=== PATIENT | female | born 1990 | race Caucasian/White ===

== ENCOUNTER 2019-10-10 05:15 | Inpatient (IN) | payer BC ==
[2019-10-10] MEDS ORDERED: Sodium Chloride 0.9% 2.5 ML Syringe FLUSH PRN (05:44)
[2019-10-10] MEDS ORDERED: Sodium Chloride 0.9% 10 ML Syringe FLUSH PRN (05:44)
[2019-10-10] MEDS ORDERED: Sodium Chloride 0.9% 10 ML SDV IV PRN (05:44)
[2019-10-10] MEDS: Lactated Ringers 1,000 ML IV SCH ×3 (05:58→11:33)
--- NOTE | 2019-10-10 07:03 | PCM.PREANE ---
Preanesthetic Assessment - Anesthesia/Transfusion/Family Hx Anesthesia History: Prior Anesthesia Without Reaction Family History of Anesthesia Reaction: No Transfusion History: No Prior Transfusion(s) Intubation History: Unknown - Review of Systems General: No Symptoms Pulmonary: No Symptoms Cardiovascular: No Symptoms Gastrointestinal: No Symptoms Neurological: No Symptoms Other: Reports: None - Physical Assessment Height: 4 ft 11.5 in Weight: 76.204 kg ASA Class: 2 Mental Status: Alert & Oriented x3 Airway Class: Mallampati = 1 Dentition: Reports: Normal Dentition Thyro-Mental Finger Breadths: 3 Mouth Opening Finger Breadths: 3 ROM/Head Extension: Full Lungs: Clear to Auscultation, Normal Respiratory Effort Cardiovascular: Regular Rate, Regular Rhythm - Lab Values: Laboratory Last Values WBC 14.62 K/uL (4.0-11.0) H 10/10/19 05:56 RBC 4.02 M/uL (4.30-5.90) L 10/10/19 05:56 Hgb 12.1 g/dL (12.0-16.0) 10/10/19 05:56 Hct 37.7 % (36.0-46.0) 10/10/19 05:56 MCV 93.8 fL (80.0-98.0) 10/10/19 05:56 MCH 30.1 pg (27.0-32.0) 10/10/19 05:56 MCHC 32.1 g/dL (31.0-37.0) 10/10/19 05:56 RDW Std Deviation 48.8 fl (28.0-62.0) 10/10/19 05:56 RDW Coeff of Delilah 14 % (11.0-15.0) 10/10/19 05:56 Plt Count 293 K/uL (150-400) 10/10/19 05:56 MPV 10.20 fL (7.40-12.00) 10/10/19 05:56 Nucleated RBC % 0.0 /100WBC 10/10/19 05:56 Nucleated RBCs # 0 K/uL 10/10/19 05:56 - Allergies Allergies/Adverse Reactions: Allergies Allergy/AdvReac Type Severity Reaction Status Date / Time azithromycin Allergy Hives Verified 10/06/19 08:07 - Blood Blood Available: No - Anesthesia Plan Pre-Op Medication Ordered: None - Acknowledgements Anesthesia Type Planned: Spinal (general anesthesia back-up plan) Pt an Appropriate Candidate for the Planned Anesthesia: Yes Alternatives and Risks of Anesthesia Discussed w Pt/Guardian: Yes Pt/Guardian Understands and Agrees with Anesthesia Plan: Yes PreAnesthesia Questionnaire HEENT History: Reports: Other (See Below) Other HEENT History: wears glasses/contacts Cardiovascular History: Reports: None Respiratory History: Reports: None Gastrointestinal History: Reports: Other (See Below) Other Gastrointestinal History: occasional heartburn during Genitourinary History: Reports: None INDIRECT SALES EXEC History: Reports: (breech presentation, first C/S), Spontaneous Musculoskeletal History: Reports: None Neurological History: Reports: Other (See Below) Other Neuro History: hx of motion sickness, Psychiatric History: Reports: None Endocrine/Metabolic History: Reports: None Hematologic History: Reports: None Immunologic History: Reports: None Oncologic (Cancer) History: Reports: None Dermatologic History: Reports: None - Infectious Disease History Infectious Disease History: Reports: Chicken Pox - Past Surgical History Head Surgeries/Procedures: Reports: None HEENT Surgical History: Reports: None Cardiovascular Surgical History: Reports: None Respiratory Surgical History: Reports: None GI Surgical History: Reports: Appendectomy, Cholecystectomy Female Surgical History: Reports: None Endocrine Surgical History: Reports: None Neurological Surgical History: Reports: None Musculoskeletal Surgical History: Reports: None Oncologic Surgical History: Reports: None Dermatological Surgical History: Reports: None - SUBSTANCE USE Smoking Status *Q: Current Every Day Smoker Tobacco Use Within Last Twelve Months: Cigarettes Second Hand Smoke Exposure: Yes Recreational Drug Use History: No - HOME MEDS Home Medications: Home Meds Pnv No.95/Ferrous Fum/Folic AC [ Vitamin Tablet] 1 tab PO DAILY [History] valACYclovir HCl [Valtrex] 500 mg PO BID 10/06/19 [History] - CURRENT (IN HOUSE) MEDS Current Meds: Current Medications Citric Acid/Sodium Citrate (Bicitra Solution) 30 ml PO ONETIME ONE Stop: 10/10/19 07:31 Cefazolin Sodium/Dextrose 1 gm (/ Premix) 50 mls @ 100 mls/hr IV ONETIME ONE Stop: 10/10/19 07:59 Lactated Ringer's (Ringers, Lactated) 1,000 mls @ 500 mls/hr IV BOLUS [facility] Last Admin: 10/10/19 05:58 Dose: 500 mls/hr Oxytocin/Sodium Chloride (Oxytocin 30 Unit/500 Ml-Ns) 30 unit in 500 mls @ 250 mls/hr IV TITRATE [facility] Sodium Chloride (Saline Flush) 10 ml FLUSH ASDIRECTED PRN PRN Reason: Keep Vein Open Sodium Chloride (Saline Flush) 2.5 ml FLUSH ASDIRECTED PRN PRN Reason: Keep Vein Open Sodium Chloride (Normal Saline) 10 ml IV ASDIRECTED PRN PRN Reason: IV Use
[2019-10-10] MEDS ORDERED: Morphine PF 10 MG/10 ML SDV ONE (07:19)
[2019-10-10] MEDS ORDERED: Ondansetron 4 MG/2 ML SDV ONE (07:19)
[2019-10-10] MEDS ORDERED: Phenylephrine 1% 10 MG/ML SDV ONE (07:19)
[2019-10-10] MEDS ORDERED: Dexamethasone 4 MG/ML 5 ML MDV ONE (07:20)
[2019-10-10] MEDS ORDERED: Oxytocin/0.9 % Sodium Chloride 30 UNIT/500 ML BAG IV SCH (07:30)
[2019-10-10] MEDS ORDERED: ceFAZolin 1 GM in Premix Bag 1 BAG IV ONE (07:30)
[2019-10-10] MEDS ORDERED: Citric Acid/Sodium Citrate Solution 30 ML Cup PO ONE (07:30)
[2019-10-10] MEDS ORDERED: ceFAZolin 1 GM Vial ONE (07:42)
[2019-10-10] MEDS ORDERED: Sodium Chloride 0.9% 20 ML ONE (07:42)
[2019-10-10] MEDS ORDERED: Naloxone 0.4 MG/ML Syringe IVPUSH PRN (08:29)
[2019-10-10] MEDS ORDERED: diphenhydrAMINE 50 MG/ML SDV IVPUSH PRN ×2 (08:29→09:54)
[2019-10-10] MEDS ORDERED: fentaNYL 100 MCG/2 ML SDV IVPUSH PRN (08:33)
[2019-10-10] MEDS ORDERED: Acetaminophen/oxyCODONE 325-5 MG Tab PO PRN ×2 (08:33→09:54)
[2019-10-10] MEDS ORDERED: Bisacodyl 10 MG Supp RECTAL PRN ×2 (08:50→09:54)
[2019-10-10] MEDS ORDERED: Docusate Sodium 100 MG Cap PO PRN (08:50)
[2019-10-10] MEDS ORDERED: Lanolin 100% Cream 7 GM Tube TOP PRN ×2 (08:50→09:54)
[2019-10-10] MEDS ORDERED: Ibuprofen 800 MG Tab PO PRN (08:50)
[2019-10-10] MEDS ORDERED: Benzocaine/Menthol 20%-0.5% Spray 78 GM Cannister TOP PRN (08:50)
[2019-10-10] MEDS ORDERED: Aluminum Hydroxide/Magnesium Hydroxide/Simethicone Susp 30 ML Cup PO PRN (08:50)
[2019-10-10] MEDS ORDERED: Witch Hazel Medicated Pads 40/Jar TOP PRN (08:50)
[2019-10-10] MEDS ORDERED: oxyCODONE 5 MG Tab PO PRN (08:50)
[2019-10-10] MEDS ORDERED: Ibuprofen 400 MG Tab PO PRN (08:50)
[2019-10-10] MEDS ORDERED: Acetaminophen 500 MG Tab PO PRN ×2 (08:50)
--- NOTE | 2019-10-10 08:59 | PCM.OPNOTE ---
- General Post-Op/Procedure Note Date of Surgery/Procedure: 10/10/19 Operative Procedure(s): Primary LTCS Findings: Viable male APGARs 8, 9 weight 2940 gm. Intact placenta with 3 V cord. Normal appearing pelvis Pre Op Diagnosis: 39 week IUP. Breech presentation Post-Op Diagnosis: Same Anesthesia Technique: Spinal Primary Surgeon: Emilee Coats Fluid Replacement, Intraop: 700 (in OR) EBL in mLs: 500 Complications: none known Condition: Stable Free Text/Narrative:: Dictation [id number]
[2019-10-10] MEDS ORDERED: Misoprostol 200 MCG Tab RECTAL PRN (09:54)
[2019-10-10] MEDS ORDERED: Tranexamic Acid 1,000 MG in Sodium Chloride 0.9% 100 ML IV PRN (09:54)
[2019-10-10] MEDS ORDERED: Ondansetron 4 MG/2 ML SDV IVPUSH PRN (09:54)
[2019-10-10] MEDS ORDERED: Oxytocin 10 Units/1 ML SDV IM PRN (09:54)
[2019-10-10] MEDS ORDERED: Methylergonovine 0.2 MG/1 ML Amp IM PRN (09:54)
--- NOTE | 2019-10-10 10:06 | PCM.POSTAN ---
POST ANESTHESIA ASSESSMENT - MENTAL STATUS Mental Status: Alert, Oriented - RESPIRATORY Respiratory Status: Respiratory Rate WNL, Airway Patent, O2 Saturation Stable - CARDIOVASCULAR CV Status: Pulse Rate WNL, Blood Pressure Stable - GASTROINTESTINAL GI Status: No Symptoms - POST OP HYDRATION Hydration Status: Adequate & Stable
[2019-10-10] MEDS: Ketorolac 30 MG/ML SDV IVPUSH SCH ×3 (10:25→22:15)
[2019-10-10] MEDS: Nalbuphine 10 MG/1 ML Vial IVPUSH PRN ×2 (11:46→17:20)
--- NOTE | 2019-10-10 14:49 | OR ---
SURGEON: Emilee Coats M.D. DATE OF PROCEDURE: 10/10/2019 PREOPERATIVE DIAGNOSES: 1. A 39-week intrauterine . 2. Breech presentation. POSTOPERATIVE DIAGNOSES: 1. A 39-week intrauterine . 2. Breech presentation. PROCEDURE: Primary low transverse section. PRIMARY SURGEON: Emilee Coats MD ANESTHESIA: Spinal. ESTIMATED BLOOD LOSS: 500 mL. FLUIDS: 700 mL of crystalloid in the OR. COMPLICATIONS: None known. FINDINGS: Viable male. scores 8 at one minute and 9 at five minutes. Weight 2940 g. Spontaneous delivery, intact placenta, 3-vessel cord. DISPOSITION: to nursery, mom in PACU, stable. PROCEDURE DETAILS: Lady is a 29-year-old G4, P 0-0-3-0, at 39 weeks' gestational age who presents today for scheduled primary delivery due to persistent breech presentation. Ultrasound does confirm breech presentation. Discussed options for delivery. She is opting for the . Risks of procedure discussed. Proper consent obtained. The patient went to the OR where she underwent spinal anesthetic and was placed in dorsal supine position in leftward tilt. SCDs to lower extremities. Gutierrez to gravity. Was prepped and draped in usual sterile fashion. Anesthesia was tested and was found to be adequate. Pfannenstiel incision was now created, carried down the subcutaneous tissue to the level of the rectus fascia which was incised in the midline, lateralized on either side sharply and bluntly. Superior aspect of fascia was tented upward, dissected sharply and bluntly away from underlying muscles. In a similar aspect, this was performed with the inferior aspect of the fascia. Rectus muscles were in midline. Peritoneum was entered. Rectus muscles and peritoneum were now lateralized bluntly. Uterine position and position palpated. Self-retaining retractor was gently placed. Uterovesical reflection was visualized. Bladder flap was created sharply and bluntly. Bladder blade was placed in the lower uterine segment. Low transverse hysterotomy was now performed. Uterine cavity was entered with blunt-ended scalpel, lateralized bluntly. Amniotomy was performed, clear fluid was returned. Infant's buttocks were visualized, were delivered to the midline and delivered followed by lower extremities, trunk, right upper extremity, left upper extremity. The head was flexed and delivered. Infant was vigorous and crying. Oropharynx and nares were bulb suctioned. After a delay, cord was clamped x2 and cut. was handed off to attending nursing staff. Cord arterial, cord venous, cord blood sampling was obtained. The placenta was now delivered. Uterine cavity was cleared of all clot and debris. I did not palpate any uterine defects or malformations. Hysterotomy was repaired using 0 Vicryl in continuous running locked fashion followed by re-imbricating layer. Area of oozing along the left and right lateral side was replicated with [id number] suture. Hemostasis evident. Posterior aspect of the uterus inspected. No defects or hematomas were found be forming. The uterus returned to the abdominal cavity. Colonic gutters were cleared of all clot and debris, well irrigated, suction dried. Hysterotomy once again inspected, found to be hemostatic. Self-retaining retractor was now removed. Bladder blade was placed. Hysterotomy once again inspected, found to be hemostatic. Rectus muscle and peritoneum were now reapproximated using 0 Vicryl in the inverted mattress suture technique. Anterior aspect of the muscle and posterior aspect of the fascia were closely inspected. Any areas of oozing were cauterized. The rectus fascia was reapproximated using 0 Vicryl in continuous running fashion, beginning laterally on each side and meeting in the midline. Subcutaneous tissue was well irrigated, suction dried. Any areas of oozing were cauterized. Skin edges were reapproximated using 3-0 Vicryl on a Inderjit needle in subcuticular fashion followed by half-inch Steri-Strips and Mastisol. Uterus remained firm. Sponge, instrument, and needle count was correct x2. The patient tolerated the procedure well overall. She will go to PACU in stable condition, infant to nursery. KADY / EVER /[id number]
[2019-10-10] MEDS: Simethicone 80 MG Tab.Chew PO SCH ×2 (15:42→22:15)
--- NOTE | 2019-10-10 19:13 | PCM48HPAN ---
Post Anesthesia Note - EVALUATION WITHIN 48HRS OF ANESTHETIC Vital Signs in Normal Range: Yes Patient Participated in Evaluation: Yes Respiratory Function Stable: Yes Airway Patent: Yes Cardiovascular Function Stable: Yes Hydration Status Stable: Yes Pain Control Satisfactory: Yes Nausea and Vomiting Control Satisfactory: Yes Mental Status Recovered: Yes Vital Signs: Last Vital Signs Temp 36.4 C 10/10/19 13:00 Pulse 74 10/10/19 18:00 Resp 18 10/10/19 18:00 BP 94/50 L 10/10/19 16:00 Pulse Ox 96 10/10/19 18:00 - COMMENTS/OBSERVATIONS Free Text/Narrative:: No anesthesia problems
[2019-10-10] MEDS: Docusate Sodium 100 MG Cap PO SCH (22:15)
[2019-10-11] MEDS: Lactated Ringers 1,000 ML IV SCH (00:28)
[2019-10-11] MEDS: Ketorolac 30 MG/ML SDV IVPUSH SCH ×2 (04:12→10:26)
[2019-10-11] MEDS: Docusate Sodium 100 MG Cap PO SCH ×2 (10:21→20:58)
[2019-10-11] MEDS: Simethicone 80 MG Tab.Chew PO SCH ×2 (10:21→20:58)
--- NOTE | 2019-10-11 11:14 | PCM.PNPP ---
- General Info Date of Service: 10/11/19 Subjective Update: 29yo P1 s/p primary for Breech presentation Pain is well controlled , ambulating , tolerating regular diet , yet to void Functional Status: Reports: Pain Controlled, Tolerating Diet, Ambulating, Urinating - Review of Systems General: Reports: No Symptoms HEENT: Reports: No Symptoms Pulmonary: Reports: No Symptoms Cardiovascular: Reports: No Symptoms Gastrointestinal: Reports: No Symptoms Genitourinary: Reports: No Symptoms Musculoskeletal: Reports: No Symptoms Skin: Reports: No Symptoms Neurological: Reports: No Symptoms Psychiatric: Reports: No Symptoms - General Info Date of Service: 10/11/19 - Patient Data Vital Signs - Most Recent: Last Vital Signs Temp 36.6 C 10/11/19 08:00 Pulse 77 10/11/19 08:00 Resp 16 10/11/19 08:00 BP 100/50 L 10/11/19 08:00 Pulse Ox 99 10/11/19 08:00 Weight - Most Recent: 76.204 kg I&O - Last 24 Hours: Intake & Output 10/10/19 10/11/19 10/11/19 22:59 06:59 14:59 Output Total 1400 Balance -1400 Lab Results - Last 24 Hours: Laboratory Results - last 24 hr 10/11/19 Range/Units 05:55 Hgb 10.1 L (12.0-16.0) g/dL Hct 30.8 L (36.0-46.0) % Med Orders - Current: Current Medications Bisacodyl (Dulcolax) 10 mg RECTAL ONETIME PRN PRN Reason: Constipation Diphenhydramine HCl (Benadryl) 25 mg IVPUSH Q6H PRN PRN Reason: Itching or Nausea Docusate Sodium (Colace) 100 mg PO BID [facility] Last Admin: 10/11/19 10:21 Dose: 100 mg Emollient Ointment (Lansinoh Hpa) 0 gm TOP ASDIRECTED PRN PRN Reason: Sore Nipples Last Admin: 10/11/19 10:31 Dose: 1 tube Fentanyl (Sublimaze) 25 - 50 mcg IVPUSH Q30M PRN PRN Reason: Pain Lactated Ringer's (Ringers, Lactated) 1,000 mls @ 500 mls/hr IV BOLUS [facility] Last Admin: 10/10/19 07:15 Dose: 999 mls/hr Oxytocin/Sodium Chloride (Oxytocin 30 Unit/500 Ml-Ns) 30 unit in 500 mls @ 250 mls/hr IV TITRATE [facility] Lactated Ringer's (Ringers, Lactated) 1,000 mls @ 125 mls/hr IV ASDIRECTED [facility] Last Admin: 10/11/19 00:28 Dose: 125 mls/hr Tranexamic Acid 1,000 mg/ (Sodium Chloride) 110 mls @ 660 mls/hr IV ONETIME PRN PRN Reason: Bleeding Ibuprofen (Motrin) 800 mg PO Q8H PRN PRN Reason: mild pain or fever Methylergonovine Maleate (Methergine) 0.2 mg IM ONETIME PRN PRN Reason: Excessive Vaginal Bleeding Misoprostol (Cytotec) 1,000 mcg RECTAL ONETIME PRN PRN Reason: excessive bleeding Ondansetron HCl (Zofran) 4 mg IVPUSH Q4H PRN PRN Reason: Nausea/Vomiting Oxycodone/Acetaminophen (Percocet 325-5 Mg) 1 - 2 tab PO Q6H PRN PRN Reason: Pain Stop: 10/12/19 14:00 Oxycodone/Acetaminophen (Percocet 325-5 Mg) 1 tab PO Q4H PRN PRN Reason: Pain (moderate 4-6) Oxycodone/Acetaminophen (Percocet 325-5 Mg) 2 tab PO Q4H PRN PRN Reason: Pain (moderate 4-6) Oxytocin (Pitocin) 10 unit IM ASDIRECTED PRN PRN Reason: Excessive Vaginal Bleeding Simethicone (Simethicone) 80 mg PO BID [facility] Last Admin: 10/11/19 10:21 Dose: 80 mg Sodium Chloride (Saline Flush) 10 ml FLUSH ASDIRECTED PRN PRN Reason: Keep Vein Open Sodium Chloride (Saline Flush) 2.5 ml FLUSH ASDIRECTED PRN PRN Reason: Keep Vein Open Sodium Chloride (Normal Saline) 10 ml IV ASDIRECTED PRN PRN Reason: IV Use Discontinued Medications Cefazolin Sodium (Ancef) Confirm Administered Dose 1 gm .ROUTE .STK-MED ONE Stop: 10/10/19 07:43 Citric Acid/Sodium Citrate (Bicitra Solution) 30 ml PO ONETIME ONE Stop: 10/10/19 07:31 Dexamethasone (Dexamethasone) Confirm Administered Dose 20 mg .ROUTE .STK-MED ONE Stop: 10/10/19 07:21 Diphenhydramine HCl (Benadryl) 25 mg IVPUSH Q4H PRN PRN Reason: Itching Stop: 10/11/19 08:32 Cefazolin Sodium/Dextrose 1 gm (/ Premix) 50 mls @ 100 mls/hr IV ONETIME ONE Stop: 10/10/19 07:59 Sodium Chloride (Normal Saline) Confirm Administered Dose 20 mls @ as directed .ROUTE .STK-MED ONE Stop: 10/10/19 07:43 Ketorolac Tromethamine (Toradol) 30 mg IVPUSH Q6H [facility] Stop: 10/11/19 10:01 Last Admin: 10/11/19 10:26 Dose: 30 mg Morphine Sulfate (Duramorph Pf) Confirm Administered Dose 10 mg .ROUTE .STK-MED ONE Stop: 10/10/19 07:20 Nalbuphine HCl (Nubain) 5 mg IVPUSH Q3H PRN PRN Reason: Pruritis Stop: 10/11/19 08:32 Last Admin: 10/10/19 17:20 Dose: 5 mg Naloxone HCl (Narcan) 0.1 mg IVPUSH ONETIME PRN PRN Reason: Respiratory Depression Stop: 10/11/19 08:33 Ondansetron HCl (Zofran) Confirm Administered Dose 4 mg .ROUTE .STK-MED ONE Stop: 10/10/19 07:20 Phenylephrine HCl (Doug-Synephrine) Confirm Administered Dose 10 mg .ROUTE .STK- MED ONE Stop: 10/10/19 07:20 - Infant Interaction Support Person: Significant Other - Recovery Exam Fundal Tone: Firm Fundal Level: At Umbilicus Fundal Placement: Midline Lochia Amount: Small Lochia Color: Rubra/Red Perineum Description: Intact, Minimal Bruising/Swelling Bladder Status: Indwelling Catheter in Place - Exam General: Alert HEENT: Pupils Equal Neck: Supple Lungs: Clear to Auscultation Cardiovascular: Regular Rate, Regular Rhythm GI/Abdominal Exam: Normal Bowel Sounds Extremities: Normal Inspection Neurological: No New Focal Deficit Psy/Mental Status: Alert - Problem List & Annotations (1) delivery delivered SNOMED Code(s): 548770902 Code(s): O82 - ENCOUNTER FOR DELIVERY WITHOUT INDICATION Status: Acute Current Visit: Yes - Problem List Review Problem List Initiated/Reviewed/Updated: Yes - Assessment Assessment:: 29yo P1 s/p primary POD1 Normal lochia Gutierrez removed - yet to void - Plan Plan:: Ambulation Regular diet Pain control as needed Incentive spirometry Discharge home tomorrow
[2019-10-11] MEDS: Acetaminophen/oxyCODONE 325-5 MG Tab PO PRN ×3 (11:50→20:58)
[2019-10-11] MEDS: Ibuprofen 800 MG Tab PO PRN (17:12)
[2019-10-12] MEDS: Ibuprofen 800 MG Tab PO PRN ×2 (01:12→09:28)
[2019-10-12] MEDS: Acetaminophen/oxyCODONE 325-5 MG Tab PO PRN ×2 (06:28→10:56)
[2019-10-12] MEDS: Simethicone 80 MG Tab.Chew PO SCH (09:25)
[2019-10-12] MEDS: Docusate Sodium 100 MG Cap PO SCH (09:26)
--- NOTE | 2019-10-12 09:57 | PCM.PNPP ---
- General Info Date of Service: 10/12/19 Subjective Update: 29yo P1 s/p primary for Breech presentation Pain is well controlled , ambulating , tolerating regular diet , voiding Functional Status: Reports: Pain Controlled, Tolerating Diet, Ambulating, Urinating - Review of Systems General: Reports: No Symptoms HEENT: Reports: No Symptoms Pulmonary: Reports: No Symptoms Cardiovascular: Reports: No Symptoms Gastrointestinal: Reports: No Symptoms Genitourinary: Reports: No Symptoms Musculoskeletal: Reports: No Symptoms Skin: Reports: No Symptoms Neurological: Reports: No Symptoms Psychiatric: Reports: No Symptoms - General Info Date of Service: 10/12/19 - Patient Data Vital Signs - Most Recent: Last Vital Signs Temp 36.2 C 10/12/19 08:30 Pulse 78 10/12/19 08:30 Resp 16 10/12/19 08:30 BP 94/53 L 10/12/19 08:30 Pulse Ox 97 10/12/19 08:30 Weight - Most Recent: 76.204 kg Lab Results - Last 24 Hours: Laboratory Results - last 24 hr 10/12/19 Range/Units 06:06 WBC 11.74 H (4.0-11.0) K/uL RBC 3.25 L (4.30-5.90) M/uL Hgb 10.2 L (12.0-16.0) g/dL Hct 30.9 L (36.0-46.0) % MCV 95.1 (80.0-98.0) fL MCH 31.4 (27.0-32.0) pg MCHC 33.0 (31.0-37.0) g/dL RDW Std Deviation 50.2 (28.0-62.0) fl RDW Coeff of Delilah 15 (11.0-15.0) % Plt Count 262 (150-400) K/uL MPV 9.50 (7.40-12.00) fL Neutrophils % (Manual) 56 (48.0-80.0) % Lymphocytes % (Manual) 34 (16.0-40.0) % Monocytes % (Manual) 9 (0.0-15.0) % Eosinophils % (Manual) 1 (0.0-7.0) % Nucleated RBC % 0.0 /100WBC Absolute Seg Neuts 6.6 H (1.4-5.7) Lymphocytes # (Manual) 4.0 H (0.6-2.4) Monocytes # (Manual) 1.1 H (0.0-0.8) Eosinophils # (Manual) 0.1 (0.0-0.7) Med Orders - Current: Current Medications Bisacodyl (Dulcolax) 10 mg RECTAL ONETIME PRN PRN Reason: Constipation Diphenhydramine HCl (Benadryl) 25 mg IVPUSH Q6H PRN PRN Reason: Itching or Nausea Docusate Sodium (Colace) 100 mg PO BID [facility] Last Admin: 10/12/19 09:26 Dose: 100 mg Emollient Ointment (Lansinoh Hpa) 0 gm TOP ASDIRECTED PRN PRN Reason: Sore Nipples Last Admin: 10/11/19 10:31 Dose: 1 tube Fentanyl (Sublimaze) 25 - 50 mcg IVPUSH Q30M PRN PRN Reason: Pain Lactated Ringer's (Ringers, Lactated) 1,000 mls @ 500 mls/hr IV BOLUS [facility] Last Admin: 10/10/19 07:15 Dose: 999 mls/hr Oxytocin/Sodium Chloride (Oxytocin 30 Unit/500 Ml-Ns) 30 unit in 500 mls @ 250 mls/hr IV TITRATE [facility] Lactated Ringer's (Ringers, Lactated) 1,000 mls @ 125 mls/hr IV ASDIRECTED [facility] Last Admin: 10/11/19 00:28 Dose: 125 mls/hr Tranexamic Acid 1,000 mg/ (Sodium Chloride) 110 mls @ 660 mls/hr IV ONETIME PRN PRN Reason: Bleeding Ibuprofen (Motrin) 800 mg PO Q8H PRN PRN Reason: mild pain or fever Last Admin: 10/12/19 09:28 Dose: 800 mg Methylergonovine Maleate (Methergine) 0.2 mg IM ONETIME PRN PRN Reason: Excessive Vaginal Bleeding Misoprostol (Cytotec) 1,000 mcg RECTAL ONETIME PRN PRN Reason: excessive bleeding Ondansetron HCl (Zofran) 4 mg IVPUSH Q4H PRN PRN Reason: Nausea/Vomiting Oxycodone/Acetaminophen (Percocet 325-5 Mg) 1 - 2 tab PO Q6H PRN PRN Reason: Pain Stop: 03/15/20 14:00 Oxycodone/Acetaminophen (Percocet 325-5 Mg) 1 tab PO Q4H PRN PRN Reason: Pain (moderate 4-6) Last Admin: 10/12/19 06:28 Dose: 1 tab Oxycodone/Acetaminophen (Percocet 325-5 Mg) 2 tab PO Q4H PRN PRN Reason: Pain (moderate 4-6) Oxytocin (Pitocin) 10 unit IM ASDIRECTED PRN PRN Reason: Excessive Vaginal Bleeding Simethicone (Simethicone) 80 mg PO BID [facility] Last Admin: 10/12/19 09:25 Dose: 80 mg Sodium Chloride (Saline Flush) 10 ml FLUSH ASDIRECTED PRN PRN Reason: Keep Vein Open Sodium Chloride (Saline Flush) 2.5 ml FLUSH ASDIRECTED PRN PRN Reason: Keep Vein Open Sodium Chloride (Normal Saline) 10 ml IV ASDIRECTED PRN PRN Reason: IV Use Discontinued Medications Cefazolin Sodium (Ancef) Confirm Administered Dose 1 gm .ROUTE .STK-MED ONE Stop: 10/10/19 07:43 Citric Acid/Sodium Citrate (Bicitra Solution) 30 ml PO ONETIME ONE Stop: 10/10/19 07:31 Dexamethasone (Dexamethasone) Confirm Administered Dose 20 mg .ROUTE .STK-MED ONE Stop: 10/10/19 07:21 Diphenhydramine HCl (Benadryl) 25 mg IVPUSH Q4H PRN PRN Reason: Itching Stop: 10/11/19 08:32 Cefazolin Sodium/Dextrose 1 gm (/ Premix) 50 mls @ 100 mls/hr IV ONETIME ONE Stop: 10/10/19 07:59 Sodium Chloride (Normal Saline) Confirm Administered Dose 20 mls @ as directed .ROUTE .STK-MED ONE Stop: 10/10/19 07:43 Ketorolac Tromethamine (Toradol) 30 mg IVPUSH Q6H [facility] Stop: 10/11/19 10:01 Last Admin: 10/11/19 10:26 Dose: 30 mg Morphine Sulfate (Duramorph Pf) Confirm Administered Dose 10 mg .ROUTE .STK-MED ONE Stop: 10/10/19 07:20 Nalbuphine HCl (Nubain) 5 mg IVPUSH Q3H PRN PRN Reason: Pruritis Stop: 10/11/19 08:32 Last Admin: 10/10/19 17:20 Dose: 5 mg Naloxone HCl (Narcan) 0.1 mg IVPUSH ONETIME PRN PRN Reason: Respiratory Depression Stop: 10/11/19 08:33 Ondansetron HCl (Zofran) Confirm Administered Dose 4 mg .ROUTE .STK-MED ONE Stop: 10/10/19 07:20 Phenylephrine HCl (Doug-Synephrine) Confirm Administered Dose 10 mg .ROUTE .STK- MED ONE Stop: 10/10/19 07:20 - Interaction Support Person: Significant Other - Recovery Exam Fundal Tone: Firm Fundal Level: At Umbilicus Fundal Placement: Midline Lochia Amount: Small Lochia Color: Rubra/Red Perineum Description: Intact, Minimal Bruising/Swelling Episiotomy/Laceration: None Bladder Status: Voiding - Exam General: Alert HEENT: Pupils Equal Neck: Supple Lungs: Clear to Auscultation Cardiovascular: Regular Rate, Regular Rhythm GI/Abdominal Exam: Normal Bowel Sounds Extremities: Normal Inspection Neurological: No New Focal Deficit Psy/Mental Status: Alert - Problem List & Annotations (1) delivery delivered SNOMED Code(s): 684257248 Code(s): O82 - ENCOUNTER FOR DELIVERY WITHOUT INDICATION Status: Acute Current Visit: Yes - Problem List Review Problem List Initiated/Reviewed/Updated: Yes - Assessment Assessment:: 29yo P1 s/p primary POD2 Normal lochia voiding - Plan Plan:: Discharge home
== END 2019-10-12 15:30 | disposition home or self-care (01) | DRG 540 ==
LOC: MW.OB 05:15
PROVIDERS: ADMIT Obstetrics & Gynecology; ATTEND Obstetrics & Gynecology
PROC: 10D00Z1 Extraction of Products of Conception, Low, Open Approach (ICD-10-PCS; principal; 2019-10-10)
DX: O32.1XX0 Maternal care for breech presentation, not applicable or unspecified (principal); Z3A.39 39 weeks gestation of pregnancy; Z37.0 Single live birth
CPT/HCPCS: 36415; 51702; 59025; 82803; 85007; 85014; 85018; 85027; 86592; 86593; 86850; 86900; 86901; A9270-GY; J0690; J1100; J1885; J2270; J2300; J2370; J2405; J7120

== ENCOUNTER 2024-06-17 06:51 | Day surgery (SDC) | payer BC ==
[2024-06-16 13:44] LABS: HEMATOCRIT 38.9 % (37.0-47.0); HEMOGLOBIN 12.8 g/dL (12.0-16.0); MEAN CORPUSCULAR HEMOGLOBIN 29.4 pg (28.0-32.0); MEAN CORPUSCULAR HGB CONC 32.9 g/dL (32.0-36.0); MEAN CORPUSCULAR VOLUME 89.2 fL (83.0-99.0); MEAN PLATELET VOLUME 9.9 fL (9.4-12.3); PLATELET COUNT,PLT 276 K/uL (150-400); RED BLOOD CELL COUNT 4.36 M/uL (4.10-5.30); WHITE BLOOD CELL COUNT,WBC 7.55 K/uL (3.9-11.3)
[2024-06-16 14:18] LABS: CALCIUM 9.3 mg/dL (8.5-10.1); CARBON DIOXIDE,CO2 28.8 mmol/L (21.0-32.0); CREATININE 0.8 mg/dL (0.6-1.0); EST CRCL DRUG DOSING (CG) 69.83 mL/min; POTASSIUM,K 4.5 mmol/L (3.5-5.1)
[~2024-06-17 06:51] MED LIST: Sodium Chloride 0.9% 10 ML Syringe FLUSH PRN; Sodium Chloride 0.9% 2.5 ML Syringe FLUSH PRN; Sodium Chloride 0.9% 20 ML SDV IV PRN
[2024-06-17] MEDS ORDERED: Dexamethasone 4 MG/ML 5 ML MDV IVPUSH ONE (06:52)
[2024-06-17] MEDS: Scopalamine 1mg/3day Transdermal Patch TOP ONE (07:15)
[2024-06-17] MEDS: Lactated Ringers 1,000 ML IV SCH (07:20)
[2024-06-17] MEDS ORDERED: Methylene Blue 100 MG/10 ML SDV ONE (07:21)
[2024-06-17] MEDS ORDERED: Bupivacaine 0.25% 30 ML SDV ONE (07:21)
[2024-06-17] MEDS ORDERED: Morphine 10 MG/ML SDV ONE (07:25)
[2024-06-17] MEDS ORDERED: Bupivacaine 0.25% 10 ML SDV ONE (07:29)
[2024-06-17] MEDS ORDERED: Ropivacaine 0.5% 5 MG/ML 30 ML SDV ONE (07:29)
[2024-06-17] MEDS ORDERED: Midazolam 1 MG/ML 2 ML SDV ONE (07:32)
[2024-06-17] MEDS ORDERED: fentaNYL 100 MCG/2 ML SDV ONE (07:32)
[2024-06-17] MEDS ORDERED: Propofol 200 MG/20 ML SDV ONE (07:32)
[2024-06-17] MEDS ORDERED: Lidocaine 1% 5 ML VIAL ONE (07:32)
[2024-06-17] MEDS ORDERED: Rocuronium Bromide 50 MG/5 ML Syringe ONE (07:32)
[2024-06-17] MEDS ORDERED: Ondansetron 4 MG/2 ML SDV ONE (07:32)
[2024-06-17] MEDS ORDERED: fentaNYL 50 MCG/ML SDV IVPUSH PRN (07:43)
[2024-06-17] MEDS ORDERED: Phenylephrine HCl In 0.9% NaCl 1 MG/10 ML Syringe IVPUSH PRN (07:43)
[2024-06-17] MEDS ORDERED: Ondansetron 4 MG/2 ML SDV IVPUSH PRN ×2 (07:43→09:50)
[2024-06-17] MEDS ORDERED: Naloxone 0.4 MG/ML SDV IVPUSH PRN (07:43)
[2024-06-17] MEDS ORDERED: Morphine 2 MG/ML SYRINGE IVPUSH PRN (07:43)
[2024-06-17] MEDS ORDERED: Albuterol 0.083% 2.5 MG/3 ML Neb Soln NEB PRN (07:43)
[2024-06-17] MEDS ORDERED: Metoclopramide 10 MG/2 ML SDV IVPUSH PRN (07:43)
[2024-06-17] MEDS ORDERED: ceFAZolin 1 GM Vial ONE (08:08)
[2024-06-17] MEDS ORDERED: Ketorolac 30 MG/ML SDV ONE (08:20)
[2024-06-17] MEDS ORDERED: Phenylephrine HCl In 0.9% NaCl 1 MG/10 ML Syringe ONE (08:27)
[2024-06-17] MEDS ORDERED: Furosemide 40 MG/4 ML VIAL ONE (09:11)
[2024-06-17] MEDS ORDERED: Sugammadex Sodium 200 MG/2 ML VIAL IV ONE (09:18)
[2024-06-17] MEDS ORDERED: Morphine 4 MG/ML Syringe IVPUSH PRN (09:50)
[2024-06-17] MEDS ORDERED: Promethazine 25 MG/ML SDV IM PRN (09:50)
[2024-06-17] MEDS ORDERED: Acetaminophen/oxyCODONE 325-5 MG Tab PO PRN (09:50)
[2024-06-17] MEDS: HYDROmorphone 1 MG/ML Syringe IVPUSH PRN (10:09)
[2024-06-17] MEDS: Sodium Chloride 0.9% 250 ML IV STA (12:48)
[2024-06-17] MEDS: ceFAZolin 1 GM in Sodium Chloride 0.9% 50 ML IV ONE (13:27)
[2024-06-17] MEDS: Ketorolac 30 MG/ML SDV IVPUSH ONE (13:28)
[2024-06-17] MEDS: HYDROmorphone 1 MG/ML Syringe ONE (13:28)
[2024-06-17] MEDS: Sodium Chloride 0.9% 1,000 ML IV SCH (13:43)
[2024-06-17] MEDS: Ketorolac 30 MG/ML SDV IVPUSH SCH (16:04)
[2024-06-17] MEDS: Acetaminophen/oxyCODONE 325-5 MG Tab PO PRN (17:25)
[2024-06-17] MEDS: Docusate Sodium 100 MG Cap PO SCH (21:16)
[2024-06-18 06:28] LABS: BASOPHILS ABSOLUTE AUTO 0.03 K/uL (0.00-0.20); BASOPHILS PERCENT AUTO 0.2 % (0.0-1.0); EOSINOPHILS ABSOLUTE AUTO 0.02 K/uL (0.00-0.45); EOSINOPHILS PERCENT AUTO 0.1 % (0.0-6.0); HEMOGLOBIN 10.5 g/dL (12.0-16.0); IMMATURE GRAN ABSOLUTE AUTO 0.05 K/uL (0.00-0.05); IMMATURE GRAN PERCENT AUTO 0.4 % (0.0-0.4); LYMPHOCYTES ABSOLUTE AUTO 2.06 K/uL (1.00-4.80); LYMPHOCYTES PERCENT AUTO 15.3 % (24.0-44.0); MEAN CORPUSCULAR HGB CONC 31.8 g/dL (32.0-36.0); MEAN CORPUSCULAR VOLUME 91.2 fL (83.0-99.0); MEAN PLATELET VOLUME 10.4 fL (9.4-12.3); MONOCYTES ABSOLUTE AUTO 0.67 K/uL (0.00-0.80); NEUTROPHILS ABSOLUTE AUTO 10.67 K/uL (1.80-7.70); PLATELET COUNT,PLT 213 K/uL (150-400); RED BLOOD CELL COUNT 3.62 M/uL (4.10-5.30)
[2024-06-18 06:49] LABS: CALCIUM 7.6 mg/dL (8.5-10.1); CARBON DIOXIDE,CO2 24.9 mmol/L (21.0-32.0); CREATININE 0.7 mg/dL (0.6-1.0); EST CRCL DRUG DOSING (CG) 79.8 mL/min; POTASSIUM,K 3.6 mmol/L (3.5-5.1)
== END 2024-06-18 10:16 | disposition home or self-care (01) ==
LOC: MW.SDS 06:51 → MW.MS 11:01 → MW.SDS 06-18 10:16
PROVIDERS: ATTEND Obstetrics & Gynecology
DX: D39.0 Neoplasm of uncertain behavior of uterus (principal); N72 Inflammatory disease of cervix uteri; F41.9 Anxiety disorder, unspecified; Z87.891 Personal history of nicotine dependence
CPT/HCPCS: 36415; 58552; 80048; 84703; 85025; 85027; 86850; 86900; 86901; A9270; J0131; J0665; J0690; J1100; J1171; J1885; J1940; J2250; J2272; J2371; J2704; J2795; J3010; J3490; J7030; J7050; J7120; Q9968; 00944; 64999; J2405